=== PATIENT | male | born 1980 | race Caucasian/White ===

== ENCOUNTER 2017-03-16 01:05 | Emergency (ER) | payer MEDICAID ==
[~2017-03-16] VITALS: Ht 170.2 cm; Wt 84.8 kg
[2017-03-16] MEDS ORDERED: LORAZEPAM INJ 2 MG/ML VIAL ONE (01:14)
--- NOTE | 2017-03-16 01:18 | NUR ---
BIBRA 860 FROM HOME C/O ANXIETY S/P INGESTING EDIABLE MARIJUANA. PT AOX3 RR EVEN AND UNLABORED. NO SOB NOTED. NAD NOTED. NO NVD AT THIS TIME. PT NOT DIAPHORETIC. PT GOWNED AND PLACED ON MONITOR WAITING FOR MD HAMPTON. PT NOTED ANXIOUS.
[2017-03-16] MEDS ORDERED: LORAZEPAM INJ 2 MG/ML VIAL IM ONE (01:30)
--- NOTE | 2017-03-16 04:17 | NUR ---
Patient is resting comfortably in bed with eyes closed. Easily aroused. VSS
--- NOTE | 2017-03-16 05:59 | NUR ---
Patient discharged to home in stable condition. Written and verbal after care instructions given. Patient verbalizes understanding of instruction. ambulatory with a steady gait. instructed no tto drive. pt verbalize understanding.
[2017-03-16 06:02] VITALS: BP 118/82
== END 2017-03-16 06:03 | disposition home or self-care (01) ==
LOC: ER 01:07
DX: F12.10 Cannabis abuse, uncomplicated (principal)
CPT/HCPCS: 96372; 99283; A4606; J2060; Z7610